=== PATIENT | female | born 1935 | race Caucasian/White ===

== ENCOUNTER 2016-09-28 19:39 | Emergency (ER) | payer MEDICARE, OTHER ==
[~2016-09-28 19:39] MED LIST: AMITIZA24 MCG PO; BISCOLAX10 MG PR; CITRACAL-VIT D1 EAC1 PO; CLARITIN10 MG PO; DULOXETINE HCL60 MG PO; DURAGESIC 100 MC1 EA TD; FLOVENT DISKUS50 MCG INH; IRON325 MG PO; KLONOPIN TAB 00.5 MG PO; LACTULOSE10 GM/15 M PO; LASIX 40 MG TAB40 MG PO; LEVAQUIN250 MG PO; LIORESAL TAB 1010 MG PO; LISINOPRIL2.5 MG PO; LOPRESSOR 50 MG50 MG GT; LORTAB 5-325 M1 EACH PO; MIRALAX17 GM PO; PERISHIELD100 GM TP; POTASSIUM CHLO20 ME1 PO; PROTONIX 40 MG40 M1 PO; PROTONIX40 MG PO; SYNTHROID 125125 MCG GT; TYLENOL 500 MG500 MG PO; VITAMIN D50000 UNIT PO; VOLTAREN100 GM TP; XARELTO20 MG PO
[2016-09-28 20:49] LABS: HEMOGLOBIN 11.3 gm/dl (12.3-15.3); RED BLOOD COUNT 3.94 M/UL (4.00-5.10); WHITE BLOOD COUNT 5.2 K/UL (4.5-11.0)
[2016-09-28 21:03] LABS: BUN/CREATININE RATIO 23 (0-10)
== END 2016-09-29 08:45 | disposition short-term general hospital (02) ==
LOC: ER1 19:39
PROVIDERS: Emergency Medicine
DX: K56.2 Volvulus (principal); Z90.49 Acquired absence of other specified parts of digestive tract; Z88.5 Allergy status to narcotic agent; Z88.8 Allergy status to other drugs, medicaments and biological substances
CPT/HCPCS: 36415; 74022; 80053; 83605; 83690; 84484; 85025; 85610; 85730; 96360; 96361; 99285; J2405; J7050; Q9962